=== PATIENT | male | born 1965 | race Two or more races ===

== ENCOUNTER 2019-10-19 09:13 | Emergency (ER) | payer OTHER ==
[~2019-10-19] VITALS: Ht 165.1 cm; Wt 86.4 kg
[2019-10-19 10:54] VITALS: BP 126/98
== END 2019-10-19 10:52 | disposition home or self-care (01) ==
LOC: EMS 09:13
DX: R03.0 Elevated blood-pressure reading, without diagnosis of hypertension (principal); Z03.818 Encounter for observation for suspected exposure to other biological agents ruled out
CPT/HCPCS: 99283; U0003